=== PATIENT | male | born 1965 | race Caucasian/White ===

== ENCOUNTER 2016-04-18 21:03 | Inpatient (IN) | payer OTHER ==
[~2016-04-18] VITALS: Ht 177.8 cm; Wt 63.7 kg
[2016-04-18 22:45] VITALS: BP 142/86
[2016-04-18 23:12] LABS: BASE EXCESS -4.4 mEq/L (-3 to +3); BICARBONATE 25.8 mEq/L (22-26); CARBOXY HGB 3.1 % (0-5); METHEMOGLOBIN 1.6 % (0-1.5); PCO2 74 mm Hg (35-45); PO2 374 mm Hg (80-100)
[2016-04-18 23:13] LABS: DEVICE PB840; FI02 60 %; MECHANICAL RATE 14 resp/min; MODE AC; PEEP 5 CM/H20; SITE LB; TIDAL VOLUME 400 ML; TOTAL RESP RATE 14 resp/min; pH 7.15 (7.35-7.45)
[2016-04-18 23:22] LABS: EOSINOPHIL (%) 0 % (0-5); HEMATOCRIT 36.7 % (38.0-50.0); IMMATURE GRANULOCYTE (%) 0.1 % (0.0-0.7); IMMATURE GRANULOCYTE COUNT 0.2 K/uL; LYMPHOCYTE COUNT 0.6 K/uL (1.0-2.8); MCH 30.3 PG (29.0-34.0); MCHC 34.3 G/DL (30.0-36.0); MCV 88.2 FL (86-99); MEAN PLAT.VOLUME 10.8 uM^3 (9.0-12.4); MONOCYTE (%) 2.7 % (3-12); MONOCYTE COUNT 0.4 K/uL (0-0.8); NEUTROPHIL (%) 93.5 % (45-76); NEUTROPHIL COUNT 14.6 K/uL (1.8-6.4); PLATELET COUNT 125 K/uL (156-360); RBC DIS.WIDTH-CV 13.7 % (11.8-14.6); RBC DIS.WIDTH-SD 43.1 % (39-53); RED BLOOD COUNT 4.16 M/uL (4.00-5.50); WHITE BLOOD COUNT 15.6 K/uL (4.1-10.2)
[2016-04-18 23:30] VITALS: BP 156/84
[2016-04-18 23:33] LABS: ADD MIUA? NO; BILIRUBIN NEGATIVE; BLOOD NEGATIVE; COLOR YELLOW ((YELLOW)); GLUCOSE (STRIP) 100; KETONES NEGATIVE; LEUKOCYTES NEGATIVE; NITRITE NEGATIVE; PH, URINE 5.5 (5-8); PROTEIN (STRIP) TRACE; UCUL ADDED? NO; UROBILINOGEN 0.2 MG/DL (0.2-1.0)
[2016-04-18 23:34] LABS: CHLORIDE 108 mEq/L (99-109); SODIUM 137 mEq/L (136-147)
[2016-04-18 23:35] LABS: MAGNESIUM 1.6 mg/dL (1.3-2.7)
[2016-04-18 23:37] LABS: GLUCOSE 149 mg/dL (70-99)
[2016-04-18 23:38] LABS: ANION GAP 8 MEQ/L (2-14); TOTAL BILIRUBIN 0.4 mg/dL (0.0-1.0)
[2016-04-18 23:40] LABS: ALKALINE PHOSPHATASE 92 IU/L (3-129); GFR ESTIMATE (CALCULATED) > 59 mL/min/
[2016-04-18 23:41] LABS: UREA NITROGEN (BUN) 10 mg/dL (9-23)
[2016-04-18 23:59] LABS: METH RESISTANT S AUREUS PCR NEGATIVE (NEGATIVE)
[2016-04-19] VITALS (27 sets, daily range): BP systolic 82–140; BP diastolic 52–100
[2016-04-19] LABS: PROBE CHECK PASS; SPECIMEN PROCESSING CONTROL PASS
[2016-04-19] MEDS ORDERED: ABILIFY10 MG PO ×2 (00:39→13:41)
[2016-04-19] MEDS ORDERED: MIRTAZAPINE45 MG PO (00:40)
[2016-04-19] MEDS ORDERED: PRAZOSIN HCL2 MG PO (00:40)
[2016-04-19] MEDS ORDERED: COGENTIN1 MG PO (00:41)
[2016-04-19] MEDS ORDERED: LO-DOSE ASPIRIN81 M2 PO (00:41)
[2016-04-19] MEDS ORDERED: HALOPERIDOL5 MG PO (00:42)
[2016-04-19 05:54] LABS: MCH 30.4 PG (29.0-34.0); MCHC 34.4 G/DL (30.0-36.0); MCV 88.4 FL (86-99); MEAN PLAT.VOLUME 11.6 uM^3 (9.0-12.4); PLATELET COUNT 121 K/uL (156-360); RBC DIS.WIDTH-CV 13.8 % (11.8-14.6); RBC DIS.WIDTH-SD 44.6 % (39-53); RED BLOOD COUNT 3.62 M/uL (4.00-5.50); WHITE BLOOD COUNT 9.4 K/uL (4.1-10.2)
[2016-04-19 06:04] LABS: BASE EXCESS 1.8 mEq/L (-3 to +3); BICARBONATE 25.7 mEq/L (22-26); CARBOXY HGB 1.9 % (0-5); COMMENTS - BLOOD GASES C+; DEVICE PB840; FI02 40 %; METHEMOGLOBIN 1.3 % (0-1.5); MODE TC; PCO2 37 mm Hg (35-45); PO2 165 mm Hg (80-100); SITE LB; pH 7.45 (7.35-7.45)
[2016-04-19 06:05] LABS: TOTAL RESP RATE 29 resp/min
[2016-04-19 06:06] LABS: ANION GAP 6 MEQ/L (2-14); CHLORIDE 107 MEQ/L (99-109); GFR ESTIMATE (CALCULATED) > 59 mL/min/; GLUCOSE 113 mg/dL (70-99); MAGNESIUM 1.3 mg/dl (1.3-2.7); POTASSIUM 3.8 MEQ/L (3.7-5.4); SAMPLE HEMOLYSIS CHECK 0; SAMPLE ICTERIC CHECK 0; SAMPLE LIPEMIA CHECK 0; SODIUM 137 MEQ/L (136-147); UREA NITROGEN (BUN) 11 mg/dL (9-23)
[2016-04-19 07:34] LABS: Estimated Average Glucose 111 mg/dL (70-123); HEMOGLOBIN A1c (GLYCOHEMOGLOB) 5.5 % HGB (Below 5.7)
[2016-04-19] MEDS ORDERED: MOBIC7.5 MG PO (15:27)
[2016-04-19] MEDS ORDERED: MAGOX 400400 MG PO (15:28)
[2016-04-19] MEDS ORDERED: TRAMADOL HCL50 MG PO (15:28)
[2016-04-19] MEDS ORDERED: LIPITOR10 MG PO (15:28)
[2016-04-19] MEDS ORDERED: NORCO 5/3251 TABLET PO (15:29)
[2016-04-19 16:10] LABS: AMPHETAMINES QUANT VALUE 0 NG/ML; BARBITUATES QUANT VALUE 0 NG/ML; BENZODIAZEPINES, URINE SCREEN POSITIVE (200 ng/mL); MARIJUANA QUANT VALUE 0 NG/ML; OPIATES QUANTITATIVE VALUE 0 NG/ML; PHENCYCLIDINE QUANT VALUE 0 NG/ML
[2016-04-19 16:45] LABS: SALICYLATE < 3.0 MG/DL (15-30); SERUM ETHYL ALCOHOL < 10 mg/dL
[2016-04-20] VITALS (18 sets, daily range): BP systolic 112–157; BP diastolic 54–77
[2016-04-20 05:30] LABS: HEMATOCRIT 34.2 % (38.0-50.0); MCH 30.6 PG (29.0-34.0); MCHC 34.5 G/DL (30.0-36.0); MCV 88.8 FL (86-99); MEAN PLAT.VOLUME 11.8 uM^3 (9.0-12.4); PLATELET COUNT 111 K/uL (156-360); RBC DIS.WIDTH-CV 14.1 % (11.8-14.6); RED BLOOD COUNT 3.85 M/uL (4.00-5.50); WHITE BLOOD COUNT 9.2 K/uL (4.1-10.2)
[2016-04-20 05:57] LABS: ANION GAP 6 MEQ/L (2-14); CHLORIDE 105 MEQ/L (99-109); GFR ESTIMATE (CALCULATED) > 59 mL/min/; MAGNESIUM 1.4 mg/dl (1.3-2.7); POTASSIUM 3.8 MEQ/L (3.7-5.4); SAMPLE HEMOLYSIS CHECK 0; SAMPLE ICTERIC CHECK 0; SAMPLE LIPEMIA CHECK 0; SODIUM 137 MEQ/L (136-147); UREA NITROGEN (BUN) 8 mg/dL (9-23)
[2016-04-20 05:59] LABS: GLUCOSE 187 mg/dL (70-99)
[2016-04-21 06:28] LABS: HEMATOCRIT 33.5 % (38.0-50.0); MCH 30.3 PG (29.0-34.0); MCHC 34.3 G/DL (30.0-36.0); MCV 88.2 FL (86-99); PLATELET COUNT 143 K/uL (156-360); RBC DIS.WIDTH-SD 45.3 % (39-53); WHITE BLOOD COUNT 8.2 K/uL (4.1-10.2)
[2016-04-21 07:03] LABS: ANION GAP 6 MEQ/L (2-14); CHLORIDE 110 MEQ/L (99-109); GFR ESTIMATE (CALCULATED) > 59 mL/min/; GLUCOSE 137 mg/dL (70-99); POTASSIUM 3.5 MEQ/L (3.7-5.4); SAMPLE HEMOLYSIS CHECK 0; SAMPLE ICTERIC CHECK 0; SAMPLE LIPEMIA CHECK 0; UREA NITROGEN (BUN) 8 mg/dL (9-23)
[2016-04-21 07:11] LABS: MAGNESIUM 1.7 mg/dl (1.3-2.7); SODIUM 144 MEQ/L (136-147)
[2016-04-21 08:30] VITALS: BP 127/73
[2016-04-21] MEDS ORDERED: THERAGRAN1 TABLET PO (15:09)
[2016-04-21] MEDS ORDERED: DEXPAK1.5 M2 PO (15:09)
[2016-04-21] MEDS ORDERED: CHLORDIAZEPOXID25 MG PO (15:09)
[2016-04-21] MEDS ORDERED: NICOTINE PATCH1 EAC2 TD (15:09)
[2016-04-21] MEDS ORDERED: COGENTIN1 MG PO (17:21)
[2016-04-21] MEDS ORDERED: MAGOX 400400 MG PO (17:21)
[2016-04-21] MEDS ORDERED: PRAZOSIN HCL2 MG PO (17:21)
[2016-04-21] MEDS ORDERED: MOBIC7.5 MG PO (17:21)
[2016-04-21] MEDS ORDERED: LIPITOR10 MG PO (17:21)
[2016-04-21] MEDS ORDERED: ABILIFY10 MG PO (17:21)
[2016-04-21] MEDS ORDERED: NORCO 5/3251 TABLET PO (17:21)
[2016-04-21] MEDS ORDERED: LO-DOSE ASPIRIN81 M2 PO (17:21)
[2016-04-21] MEDS ORDERED: TRAMADOL HCL50 MG PO (17:21)
[2016-04-21] MEDS ORDERED: MIRTAZAPINE45 MG PO (17:21)
== END 2016-04-21 17:40 | disposition home or self-care (01) | DRG 917 ==
LOC: 4WEST 21:03 → 5EAST 22:40 → 4WEST 04-20 14:28 → 5EAST 04-20 16:51
PROVIDERS: Emergency Medicine; Internal Medicine Critical Care Medicine
PROC: 5A1935Z Respiratory Ventilation, Less than 24 Consecutive Hours (ICD-10-PCS; principal; 2016-04-18)
DX: T40.1X1A Poisoning by heroin, accidental (unintentional), initial encounter (principal); J96.00 Acute respiratory failure, unspecified whether with hypoxia or hypercapnia; E87.2 Acidosis; T43.1X1A Poisoning by monoamine-oxidase-inhibitor antidepressants, accidental (unintentional), initial encounter; D69.6 Thrombocytopenia, unspecified; Z95.0 Presence of cardiac pacemaker; I25.10 Atherosclerotic heart disease of native coronary artery without angina pectoris; Z95.5 Presence of coronary angioplasty implant and graft; I11.9 Hypertensive heart disease without heart failure; F25.9 Schizoaffective disorder, unspecified; F11.229 Opioid dependence with intoxication, unspecified; G92 Toxic encephalopathy; R73.9 Hyperglycemia, unspecified; E83.51 Hypocalcemia; F17.200 Nicotine dependence, unspecified, uncomplicated; F32.9 Major depressive disorder, single episode, unspecified
CPT/HCPCS: 36600; 71010; 80048; 80053; 81003; 82803; 82948; 83036; 83605; 83735; 83930; 83935; 84100; 85025; 85027; 87070; 87205; 87641; 94002; 94003; 94640; 94799; 99202; G0480; J1100; J1650; J1815; J2704; J3360; J3411; J7030; J7050; J7120